=== PATIENT | female | born 1935 | race Two or more races ===

== ENCOUNTER 2022-01-12 06:25 | Emergency (ER) | payer MEDICARE, OTHER ==
[~2022-01-12] VITALS: Ht 165.1 cm; Wt 81.6 kg
[2022-01-12] MEDS ORDERED: HYDROmorphone HCL 2 MG/ML VL IV ONE (08:00)
[2022-01-12] MEDS ORDERED: SODIUM CHLORIDE 0.9% 1,000 ML IV ONE (08:00)
[2022-01-12] MEDS ORDERED: ONDANSETRON HCL 4 MG/2 ML VIAL IV ONE (08:00)
[2022-01-12 08:47] LABS: Albumin 3.2 g/dL (3.4-5.0); BUN/Creatinine Ratio 7.8; Bilirubin, Total 0.7 mg/dL (0.2-1.0); Calcium 8.2 mg/dL (8.5-10.1); Potassium 4.7 mmol/L (3.5-5.1); Total Protein 6.8 g/dL (6.4-8.2)
[2022-01-12 08:48] LABS: Magnesium 2.4 mg/dL (1.6-2.6)
[2022-01-12 09:04] LABS: Basophils # (auto) 0 10 ^3/uL (0-0.2); Basophils % (auto) 0.5 % (0.0-2.0); Eosinophils # (auto) 0.1 10 ^3/uL (0-0.8); Eosinophils % (auto) 0.8 % (0.0-7.0); Hematocrit 34.1 % (36.0-46.0); Hemoglobin 11.4 g/dL (12.2-16.2); Lymphocytes # (auto) 0.9 10 ^3/uL (0.4-5.4); Mean Corpuscular Hemoglobin 28.1 pg (28.0-32.0); Mean Corpuscular Hgb Conc. 33.4 g/dL (32.0-36.0); Mean Corpuscular Volume 84.1 fL (80.0-100.0); Monocytes # (auto) 0.5 10 ^3/uL (0-1.3); Monocytes % (auto) 8.1 % (0.0-12.0); Neutrophils # (auto) 4.7 10 ^3/uL (1.6-8.6); Neutrophils % (auto) 75.6 % (37.0-80.0); Nucleated Red Blood Cells % 0.1 %; Red Blood Cells 4.05 10^6/uL (4.0-5.20); Red Cell Distribution Width 15.4 % (11.8-14.3); White Blood Cell 6.3 10^3/uL (4.4-10.8)
[2022-01-12 09:48] LABS: Urine Bacteria NONE SEEN /hpf (None Seen); Urine Blood Negative /uL (Negative); Urine Specific Gravity 1.003 (1.001-1.035); Urine WBC 1 /hpf (0 - 5)
[2022-01-12 12:00] VITALS: BP 103/50
== END 2022-01-12 14:29 | disposition home or self-care (01) ==
LOC: ER 06:25 → EDBD 06:25 → ER 14:29
DX: G89.29 Other chronic pain (principal); M54.50 Low back pain, unspecified; M47.816 Spondylosis without myelopathy or radiculopathy, lumbar region; M48.56XA Collapsed vertebra, not elsewhere classified, lumbar region, initial encounter for fracture; N18.6 End stage renal disease; Z88.0 Allergy status to penicillin
CPT/HCPCS: 36415; 71045; 72131; 80053; 81001; 83735; 84484; 85025; 93005; 96361; 96374; 96375; 99285; J1170; J2405; J7030

== ENCOUNTER 2022-02-07 18:03 | Inpatient (IN) | payer MEDICARE ==
[~2022-02-07] VITALS: Ht 170.2 cm; Wt 64.0 kg
[2022-02-07] MEDS ORDERED: SODIUM CHLORIDE 0.9% 500 ML IV ONE ×2 (18:30→23:30)
[2022-02-07] MEDS ORDERED: ONDANSETRON HCL 4 MG/2 ML VIAL IV ONE (18:30)
[2022-02-07 19:05] LABS: Eosinophils # (auto) 0.1 10 ^3/uL (0-0.8); Mean Corpuscular Volume 81.8 fL (80.0-100.0); Monocytes # (auto) 0.5 10 ^3/uL (0-1.3); Red Cell Distribution Width 15.3 % (11.8-14.3)
[2022-02-07 19:08] LABS: Basophils # (auto) 0 10 ^3/uL (0-0.2); Basophils % (auto) 0.7 % (0.0-2.0); Eosinophils % (auto) 0.8 % (0.0-7.0); Hematocrit 38.1 % (36.0-46.0); Hemoglobin 12.6 g/dL (12.2-16.2); Lymphocytes # (auto) 1.7 10 ^3/uL (0.4-5.4); Lymphocytes % (auto) 25.2 % (10.0-50.0); Mean Corpuscular Hgb Conc. 32.9 g/dL (32.0-36.0); Monocytes % (auto) 7.5 % (0.0-12.0); Neutrophils # (auto) 4.4 10 ^3/uL (1.6-8.6); Neutrophils % (auto) 65.8 % (37.0-80.0); Nucleated Red Blood Cells % 0.1 %; Red Blood Cells 4.66 10^6/uL (4.0-5.20); White Blood Cell 6.7 10^3/uL (4.4-10.8)
[2022-02-07 19:23] LABS: INR 1.05 (0.9-1.15); Partial Thromboplastin Time 23.1 sec (23.6-33.0)
[2022-02-07 19:24] LABS: Albumin 3.6 g/dL (3.4-5.0); Calcium 9.3 mg/dL (8.5-10.1); Potassium 4.1 mmol/L (3.5-5.1)
[2022-02-07 19:26] LABS: BUN/Creatinine Ratio 9.8
[2022-02-07 19:31] LABS: Bilirubin, Total 0.4 mg/dL (0.2-1.0); Total Protein 7.1 g/dL (6.4-8.2)
[2022-02-07 19:31] LABS: Lactic Acid w/Reflex 2.5 mmol/L (0.4-2.0)
[2022-02-07] MEDS ORDERED: MECLIZINE HCL 25 MG TAB PO ONE (20:30)
[2022-02-07 22:43] LABS: Urine Amorphous Crystal FEW /hpf (None Seen); Urine Bacteria NONE SEEN /hpf (None Seen); Urine Blood Negative /uL (Negative); Urine Specific Gravity 1.012 (1.001-1.035); Urine WBC 1 /hpf (0 - 5)
[2022-02-07] MEDS ORDERED: IOHEXOL 300 MG/ML 100ML BOTTLE IJ ONE (23:21)
[2022-02-08] MEDS ORDERED: ONDANSETRON HCL 4 MG/2 ML VIAL IV PRN (04:30)
[2022-02-08] MEDS ORDERED: DOCUSATE SOD 100 MG CAP PO PRN (04:30)
[2022-02-08] MEDS ORDERED: ACETAMINOPHEN 325 MG TAB PO PRN (04:30)
[2022-02-08] MEDS ORDERED: HYDROcodone-ACET 5/325MG TAB PO PRN (04:30)
[2022-02-08] MEDS ORDERED: NITROGLYCERIN 0.4 MG SL TAB SL PRN (05:15)
[2022-02-08] MEDS ORDERED: MORPHINE SULFATE INJECTION 2 MG/ML SYRG IV PRN (05:15)
[2022-02-08 08:00] VITALS: BP 117/94
[2022-02-08] MEDS ORDERED: ATOR20TA50 PO (09:43)
[2022-02-08] MEDS ORDERED: FLUO-126 PO (09:43)
[2022-02-08] MEDS ORDERED: PRAM0.12 PO (09:43)
[2022-02-08] MEDS ORDERED: MEMA1TAB5 PO (09:43)
[2022-02-08] MEDS ORDERED: MEMANTINE HCL 5 MG TAB PO SCH (10:00)
[2022-02-08] MEDS: MULTIPLE VITAMIN TAB PO SCH (10:46)
[2022-02-08] MEDS: FAMOTIDINE (10MG/ML) 2ML VL IV SCH (10:46)
[2022-02-08] MEDS: ZINC SULFATE 220mg CAP or TAB PO SCH (10:46)
[2022-02-08] MEDS: ASCORBIC ACID 500 MG TAB PO SCH ×2 (10:46→21:54)
[2022-02-08 12:58] VITALS: BP 115/69
[2022-02-08 22:00] VITALS: BP 107/63
[2022-02-09] MEDS ORDERED: LORazepam 2MG/ML-1ML VIAL IV PRN
[2022-02-09] MEDS: MEMANTINE HCL 5 MG TAB PO SCH ×3 (00:04→21:14)
[2022-02-09 02:18] LABS: % Iron Saturation 23.6 % (15-50)
[2022-02-09 02:30] LABS: Ferritin 19.8 ng/mL (10-322)
[2022-02-09 05:00] VITALS: BP 121/74
[2022-02-09 06:08] LABS: Basophils # (auto) 0.1 10 ^3/uL (0-0.2); Basophils % (auto) 0.9 % (0.0-2.0); Eosinophils # (auto) 0.1 10 ^3/uL (0-0.8); Hematocrit 35.5 % (36.0-46.0); Hemoglobin 11.6 g/dL (12.2-16.2); Lymphocytes # (auto) 1.8 10 ^3/uL (0.4-5.4); Lymphocytes % (auto) 30.7 % (10.0-50.0); Mean Corpuscular Hemoglobin 27.1 pg (28.0-32.0); Mean Corpuscular Hgb Conc. 32.8 g/dL (32.0-36.0); Mean Corpuscular Volume 82.6 fL (80.0-100.0); Monocytes # (auto) 0.8 10 ^3/uL (0-1.3); Monocytes % (auto) 12.9 % (0.0-12.0); Neutrophils # (auto) 3.2 10 ^3/uL (1.6-8.6); Neutrophils % (auto) 53.5 % (37.0-80.0); Nucleated Red Blood Cells % 0.1 %; Red Cell Distribution Width 15.9 % (11.8-14.3); White Blood Cell 5.9 10^3/uL (4.4-10.8)
[2022-02-09 06:20] LABS: Albumin 3.4 g/dL (3.4-5.0); BUN/Creatinine Ratio 12.6; Calcium 8.9 mg/dL (8.5-10.1); Potassium 4.2 mmol/L (3.5-5.1)
[2022-02-09 06:23] LABS: Bilirubin, Total 0.5 mg/dL (0.2-1.0); Total Protein 6.6 g/dL (6.4-8.2)
[2022-02-09 08:00] VITALS: BP 103/57
[2022-02-09] MEDS: FAMOTIDINE (10MG/ML) 2ML VL IV SCH (09:49)
[2022-02-09] MEDS: ZINC SULFATE 220mg CAP or TAB PO SCH (09:50)
[2022-02-09] MEDS: ASCORBIC ACID 500 MG TAB PO SCH ×2 (09:50→21:13)
[2022-02-09] MEDS: MULTIPLE VITAMIN TAB PO SCH (09:50)
[2022-02-09 12:00] VITALS: BP 109/72
[2022-02-09 16:00] VITALS: BP 106/58
[2022-02-09] MEDS: PRIMIDONE 50 MG TAB PO SCH (21:15)
[2022-02-09 22:00] VITALS: BP 109/67
[2022-02-10 05:00] VITALS: BP 100/77
[2022-02-10 08:00] VITALS: BP 135/62
[2022-02-10] MEDS ORDERED: ADENOSINE 51 MG in GIVE UN-DILUTED 0 ML IV STA (08:59)
[2022-02-10] MEDS ORDERED: MULT-1058 PO (09:41)
[2022-02-10] MEDS: MEMANTINE HCL 5 MG TAB PO SCH ×2 (10:00→21:26)
[2022-02-10] MEDS: ZINC SULFATE 220mg CAP or TAB PO SCH (10:00)
[2022-02-10] MEDS: ASCORBIC ACID 500 MG TAB PO SCH ×2 (10:00→21:24)
[2022-02-10] MEDS: MULTIPLE VITAMIN TAB PO SCH (10:00)
[2022-02-10] MEDS: FAMOTIDINE (10MG/ML) 2ML VL IV SCH (10:00)
[2022-02-10 11:06] VITALS: BP 139/73
[2022-02-10 12:00] VITALS: BP 147/54
[2022-02-10 16:00] VITALS: BP 140/60
[2022-02-10] MEDS: PRIMIDONE 50 MG TAB PO SCH (21:23)
[2022-02-10 22:00] VITALS: BP 132/68
[2022-02-11 05:00] VITALS: BP 130/63
[2022-02-11 09:16] VITALS: BP 109/76
[2022-02-11] MEDS ORDERED: PRIM50TA27 PO (09:56)
[2022-02-11] MEDS: ZINC SULFATE 220mg CAP or TAB PO SCH (10:00)
[2022-02-11] MEDS: MULTIPLE VITAMIN TAB PO SCH (10:00)
[2022-02-11] MEDS: MEMANTINE HCL 5 MG TAB PO SCH (10:00)
[2022-02-11] MEDS: ASCORBIC ACID 500 MG TAB PO SCH (10:00)
[2022-02-11] MEDS: FAMOTIDINE (10MG/ML) 2ML VL IV SCH (10:00)
[2022-02-11] MEDS: PRIMIDONE 50 MG TAB PO SCH (10:15)
[2022-02-11 16:14] LABS: Folate (Folic Acid) > 24.0 ng/mL (5.38-24)
== END 2022-02-11 12:00 | disposition home health service (06) | DRG 71 ==
LOC: EDBD 18:03 → ER 18:03 → OVERFLOW 02-08 05:09 → CENTRAL 02-08 08:12
PROVIDERS: ADMIT Nurse Practitioner Family; ATTEND Family Medicine
DX: G93.41 Metabolic encephalopathy (principal); E87.2 Acidosis; R42 Dizziness and giddiness; G40.209 Localization-related (focal) (partial) symptomatic epilepsy and epileptic syndromes with complex partial seizures, not intractable, without status epilepticus; K80.20 Calculus of gallbladder without cholecystitis without obstruction; K57.30 Diverticulosis of large intestine without perforation or abscess without bleeding; I45.10 Unspecified right bundle-branch block; Z20.822 Contact with and (suspected) exposure to COVID-19; F32.A Depression, unspecified; R94.31 Abnormal electrocardiogram [ECG] [EKG]; F03.90 Unspecified dementia, unspecified severity, without behavioral disturbance, psychotic disturbance, mood disturbance, and anxiety; G25.0 Essential tremor; F60.0 Paranoid personality disorder; Z79.899 Other long term (current) drug therapy; Z82.0 Family history of epilepsy and other diseases of the nervous system; I25.2 Old myocardial infarction; Z90.710 Acquired absence of both cervix and uterus; Z88.0 Allergy status to penicillin
CPT/HCPCS: 36415; 70450; 70551; 71045; 74177; 78452; 80053; 81001; 82607; 82728; 82746; 83540; 83550; 83605; 83690; 84443; 84484; 85025; 85379; 85610; 85730; 93005; 93017; 93306; 93886; 93970; 95819; 96361; 96374; 97110; 97116; 97163; G0378; J0153; J2405; J3490

== ENCOUNTER 2024-06-16 07:35 | Inpatient (IN) | payer MEDICARE ==
[~2024-06-16] VITALS: Ht 165.1 cm; Wt 60.0 kg
[~2024-06-16 07:35] MED LIST: ATOR20TA50 PO; FLUO-126 PO; MEMA1TAB5 PO; MULT-1058 PO; PRAM0.12 PO; PRIM50TA27 PO
[2024-06-16 08:10] VITALS: PULSE 89; RESP 18; O2SAT 94
[2024-06-16 08:37] LABS: Basophils # (auto) 0 10 ^3/uL (0-0.2); Basophils % (auto) 0.7 % (0.0-2.0); Eosinophils # (auto) 0.1 10 ^3/uL (0-0.8); Eosinophils % (auto) 1.6 % (0.0-7.0); Hematocrit 39.3 % (36.0-46.0); Hemoglobin 13.1 g/dL (12.2-16.2); Lymphocytes # (auto) 0.9 10 ^3/uL (0.4-5.4); Lymphocytes % (auto) 18.3 % (10.0-50.0); Mean Corpuscular Hemoglobin 29.7 pg (28.0-32.0); Mean Corpuscular Hgb Conc. 33.3 g/dL (32.0-36.0); Mean Corpuscular Volume 89.1 fL (80.0-100.0); Monocytes # (auto) 0.6 10 ^3/uL (0-1.3); Monocytes % (auto) 11.7 % (0.0-12.0); Neutrophils # (auto) 3.3 10 ^3/uL (1.6-8.6); Neutrophils % (auto) 67.7 % (37.0-80.0); Red Blood Cells 4.41 10^6/uL (4.0-5.20); Red Cell Distribution Width 14.2 % (11.8-14.3); White Blood Cell 4.9 10^3/uL (4.4-10.8)
[2024-06-16 08:49] LABS: Chloride 102 mmol/L (98-107); Potassium 3.7 mmol/L (3.5-5.1); Sodium 137 mmol/L (136-145)
[2024-06-16 08:50] LABS: Anion Gap 9 (5-15); Calcium 9.5 mg/dL (8.7-10.4); Carbon Dioxide 26 mmol/L (20-30)
[2024-06-16 08:55] LABS: Glucose 115 mg/dL (74-106)
[2024-06-16 08:59] LABS: Blood Urea Nitrogen < 5 mg/dL (9-23)
[2024-06-16] MEDS ORDERED: ONDANSETRON HCL 4 MG/2 ML VIAL IV PRN (10:45)
[2024-06-16] MEDS ORDERED: POLYETHYLENE GLYCOL 17 GM PWDR PO PRN (10:45)
[2024-06-16] MEDS ORDERED: MORPHINE SULFATE INJ 2 MG/ml SYRG IV PRN (10:45)
[2024-06-16] MEDS ORDERED: DOCUSATE SOD 100 MG CAP PO PRN (10:45)
[2024-06-16] MEDS ORDERED: NITROGLYCERIN 0.4 MG SL TAB SL PRN (10:45)
[2024-06-16] MEDS: POLYETHYLENE GLYCOL 17 GM PWDR PO ONE (11:41)
[2024-06-16] MEDS: SODIUM CHLORIDE 0.9% 1,000 ML IV SCH (11:42)
[2024-06-16 11:49] LABS: Urine Bacteria None Seen /hpf (None Seen)
[2024-06-16 12:03] LABS: Urine Blood Negative /uL (Negative); Urine Clarity Clear (Clear); Urine Color Colorless (Yellow); Urine Protein, UAD Negative (Negative); Urine Specific Gravity 1.003 (1.001-1.035); Urine Urobilinogen Normal (Negative); Urine WBC <1 /hpf (0 - 5)
[2024-06-16 17:36] VITALS: PULSE 75; O2SAT 97
[2024-06-16 19:25] VITALS: BP 124/49; PULSE 85; RESP 17; TEMP 98; O2SAT 94
[2024-06-16 20:00] VITALS: PULSE 79; RESP 18; O2SAT 95
[2024-06-16] MEDS: PRIMIDONE 50 MG TAB PO SCH (20:27)
[2024-06-16] MEDS: MEMANTINE HCL 5 MG TAB PO SCH (20:27)
[2024-06-16] MEDS: traZODone HCL 50 MG TAB PO SCH (20:30)
[2024-06-16 22:00] VITALS: BP 120/45; PULSE 79; RESP 18; TEMP 97.7; O2SAT 98
[2024-06-16] MEDS ORDERED: PATIENTS OWN MEDICATION (Memantine Hydrochloride (Memantine HCl) 10 MG) PO SCH (22:00)
[2024-06-17] VITALS (7 sets, daily range): BP systolic 102–141; BP diastolic 60–94; PULSE 72–100; RESP 16–18; TEMP 97.4–98.5; O2SAT 94–96
[2024-06-17] MEDS: CIPROFLOXACIN 400MG/200ML 200 ML IV ONE (00:57)
[2024-06-17] MEDS: metroNIDAZOLE 500MG/100ML 100 ML IV ONE (00:58)
[2024-06-17 05:52] LABS: Alkaline Phosphatase 71 U/L (46-116); Anion Gap 6 (5-15); Aspartate Aminotransferase 10 U/L (13-40); BUN/Creatinine Ratio 7.7 (10.0-20.0); Blood Urea Nitrogen 6 mg/dL (9-23); Calcium 9.1 mg/dL (8.7-10.4); Carbon Dioxide 28 mmol/L (20-30); Chloride 104 mmol/L (98-107); Glucose 101 mg/dL (74-106); Potassium 4.3 mmol/L (3.5-5.1); Sodium 138 mmol/L (136-145)
[2024-06-17 05:53] LABS: Albumin 3.9 g/dL (3.2-4.8); Bilirubin, Total 0.7 mg/dL (0.2-1.0)
[2024-06-17 05:54] LABS: Total Protein 5.9 g/dL (5.7-8.2)
[2024-06-17 05:57] LABS: Basophils # (auto) 0 10 ^3/uL (0-0.2); Basophils % (auto) 0.6 % (0.0-2.0); Eosinophils # (auto) 0.2 10 ^3/uL (0-0.8); Eosinophils % (auto) 2.9 % (0.0-7.0); Hematocrit 37.2 % (36.0-46.0); Hemoglobin 12.8 g/dL (12.2-16.2); Lymphocytes # (auto) 1.3 10 ^3/uL (0.4-5.4); Lymphocytes % (auto) 23.1 % (10.0-50.0); Mean Corpuscular Hemoglobin 30.9 pg (28.0-32.0); Mean Corpuscular Hgb Conc. 34.4 g/dL (32.0-36.0); Mean Corpuscular Volume 89.9 fL (80.0-100.0); Monocytes # (auto) 0.7 10 ^3/uL (0-1.3); Neutrophils # (auto) 3.3 10 ^3/uL (1.6-8.6); Neutrophils % (auto) 60.4 % (37.0-80.0); Nucleated Red Blood Cells % 0.2 %; Red Blood Cells 4.14 10^6/uL (4.0-5.20); White Blood Cell 5.5 10^3/uL (4.4-10.8)
[2024-06-17] MEDS: metroNIDAZOLE 500MG/100ML 100 ML IV SCH (06:00)
[2024-06-17 06:11] LABS: Alanine Aminotransferase 10 U/L (7-40)
[2024-06-17] MEDS ORDERED: PRAMIPEXOLE DIHYDROCHLORIDE 0.125 MG PO SCH (10:00)
[2024-06-17] MEDS: PRAMIPEXOLE DIHYDROCHLORIDE MO 0.25 MG TAB PO SCH (10:46)
[2024-06-17] MEDS: MULTIPLE VITAMINS W/ MINERALS TAB PO SCH (10:46)
[2024-06-17] MEDS: ATORVASTATIN 20 MG TAB PO SCH (10:46)
[2024-06-17] MEDS: CIPROFLOXACIN 400MG/200ML 200 ML IV SCH (11:21)
[2024-06-18 06:23] LABS: Basophils # (auto) 0 10 ^3/uL (0-0.2); Basophils % (auto) 0.6 % (0.0-2.0); Eosinophils # (auto) 0.1 10 ^3/uL (0-0.8); Eosinophils % (auto) 2.6 % (0.0-7.0); Hematocrit 37.8 % (36.0-46.0); Lymphocytes # (auto) 1.4 10 ^3/uL (0.4-5.4); Lymphocytes % (auto) 25.9 % (10.0-50.0); Mean Corpuscular Hgb Conc. 34.3 g/dL (32.0-36.0); Mean Corpuscular Volume 90.3 fL (80.0-100.0); Monocytes # (auto) 0.6 10 ^3/uL (0-1.3); Monocytes % (auto) 11.4 % (0.0-12.0); Neutrophils # (auto) 3.2 10 ^3/uL (1.6-8.6); Neutrophils % (auto) 59.5 % (37.0-80.0); Nucleated Red Blood Cells % 0.2 %; Red Blood Cells 4.18 10^6/uL (4.0-5.20); Red Cell Distribution Width 14.2 % (11.8-14.3); White Blood Cell 5.3 10^3/uL (4.4-10.8)
[2024-06-18 06:36] LABS: Anion Gap 8 (5-15); Calcium 9.1 mg/dL (8.7-10.4); Carbon Dioxide 24 mmol/L (20-30); Chloride 105 mmol/L (98-107); Potassium 3.9 mmol/L (3.5-5.1); Sodium 137 mmol/L (136-145)
[2024-06-18 06:42] LABS: Glucose 96 mg/dL (74-106)
[2024-06-18 06:45] LABS: Blood Urea Nitrogen < 5 mg/dL (9-23)
[2024-06-18 07:11] LABS: BUN/Creatinine Ratio 6.4 (10.0-20.0)
[2024-06-18 07:57] VITALS: RESP 18; O2SAT 95
[2024-06-18 09:00] VITALS: BP 114/61; PULSE 100; RESP 18; TEMP 98.1; O2SAT 96
[2024-06-18] MEDS: POLYETHYLENE GLYCOL 17 GM PWDR PO SCH (10:00)
[2024-06-18] MEDS: FLUoxetine HCL 10 MG CAP PO SCH (10:06)
[2024-06-18] MEDS ORDERED: DOCU-265 PO (12:09)
[2024-06-18 13:00] VITALS: BP 117/69; PULSE 101; RESP 20; TEMP 98; O2SAT 95
[2024-06-18 14:48] VITALS: TEMP 36.6
== END 2024-06-18 16:00 | disposition home or self-care (01) | DRG 388 ==
LOC: ER 07:35 → OVERFLOW 10:42 → WEST WING 17:27
PROVIDERS: ADMIT Internal Medicine Pulmonary Disease; ATTEND Internal Medicine Pulmonary Disease
DX: K56.41 Fecal impaction (principal); G93.41 Metabolic encephalopathy; N18.6 End stage renal disease; F03.90 Unspecified dementia, unspecified severity, without behavioral disturbance, psychotic disturbance, mood disturbance, and anxiety; K57.30 Diverticulosis of large intestine without perforation or abscess without bleeding; K80.20 Calculus of gallbladder without cholecystitis without obstruction; G47.00 Insomnia, unspecified; N20.0 Calculus of kidney; Z88.0 Allergy status to penicillin
CPT/HCPCS: 36415; 74176; 76775; 80048; 80053; 81001; 82962; 85025; 93005; G0378; J3490

== ENCOUNTER 2025-04-23 17:42 | Inpatient (IN) | payer MEDICARE ==
[~2025-04-23] VITALS: Ht 160 cm; Wt 64.9 kg
[~2025-04-23 17:42] MED LIST changes: +DOCU-265 PO
--- NOTE | 2025-04-23 18:17 | ED.PDOC ---
HPI (NEURO) HPI Comments 89 y.o female with PMHx of dementia, presents to the ED via EMS for a chief complaint of nausea, vomiting and abdominal discomfort s/p what her facility staff stated was a tonic clonic seizure. EMS reports patient resides at a skilled facility and staff witnessed a 20 second tonic clonic seizure. Patient is a poor historian due to medical history and limited history provided by facility. At this time no family present. Patient has no history of seizures. Vital signs were stable on arrival. Chief Complaint: Nausea/Vomiting Time Seen by MD: 18:10 Primary Care Provider: JAIR Reviewed Notes: Nurses Notes, Quarry Equipment Operator Notes, Medications, Allergies Information Source: Emergency Med Personnel Mode of Arrival: EMS Severity: Moderate Timing: Hours Duration: Since onset Prehospital treatment: 12 Lead EKG Seizure Quality: Tonic-clonic Seizure Location: Generalized Onset: At rest Circumstances: Spontaneous Symptoms: None Before: Normal During: LOC History of: None Modifying factors: Nothing Associated Signs and Symptoms: Nausea, Vomiting Past Medical History PAST MEDICAL HISTORY: Dementia, ESRD Surgical History: Denies all surgeries 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 all 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 Family History Family History: Reviewed,noncontributory to illness Social History Smoker: Non-Smoker Alcohol: Denies ETOH Use Drugs: Denies Drug Use Lives In: Home Constitutional: denies: chills, diaphoresis, fatigue, fever, malaise, sweats, weakness, others EENTM: denies: blurred vision, double vision, ear bleeding, ear discharge, ear drainage, ear pain, ear ringing, eye pain, eye redness, hearing loss, mouth pain, mouth swelling, nasal discharge, nose bleeding, nose congestion, nose pain, photophobia, tearing, throat pain, throat swelling, voice changes, others Respiratory: denies: cough, hemoptysis, orthopnea, SOB at rest, shortness of breath, SOB with excertion, stridor, wheezing, others Cardiovascular: denies: chest pain, dizzy spells, diaphoresis, Dyspnea on exertion, edema, irregular heart beat, left arm pain, lightheadedness, palpitations, PND, syncope, others Gastrointestinal: reports: nausea, vomiting; denies: abdomen distended, abdominal pain, blood streaked bowels, constipated, diarrhea, dysphagia, difficulty swallowing, hematemesis, melena, poor appetite, poor fluid intake, rectal bleeding, rectal pain, others Genitourinary: denies: abnormal vagina bleeding, burning, dyspareunia, dysuria, flank pain, frequency, hematuria, incontinence, pain, , vagina di scharge, urgency, others Neurological: reports: seizure; denies: dizziness, fainting, headache, left sided numbness, left sided weakness, numbness, paresthesia, pre-existing deficit, right sided numbness, right sided weakness, speech problems, tingling, tremors, weakness, others Musculoskeletal: denies: back pain, gout, joint pain, joint swelling, muscle pain, muscle stiffness, neck pain, others Integumetry: denies: bruises, change in color, change in hair/nails, dryness, laceration, lesions, lumps, rash, wounds, others Allergic/Immunocompromised: denies: Difficulty Healing, Frequent Infections, Hives, Itching, others Hematologic/Lymphatic: denies: anemia, blood clots, easy bleeding, easy bruising, swollen glands, others Endocrine: denies: excessive hunger, excessive sweating, excessive thirst, excessive urination, flushing, intolerance to cold, intolerance to heat, unexplained weight gain, unexplained weight loss, others Psychiatric: denies: anxiety, bipolar disorder, depression, hopeless, panic disorder, schizophrenia, sleepless, suicidal, others Unable to Obtain due to: Dementia Physical Exam Exam Comments Patient presents with a advanced dementia. General Appearance: Mild Distress (Moderate distress due to minimal nausea concerns.), Normal HEENT: Normal ENT Inspection, Pharynx Normal, TMs Normal Neck: Full Range of Motion, Non-Tender, Normal, Normal Inspection Respiratory: Chest Non-Tender, Lungs Clear, No Accessory Muscle Use, No Respiratory Distress, Normal Breath Sounds Cardiovascular: No Edema, No JVD, No Murmur, No Gallop, Normal Peripheral Puls es, Regular Rate/Rhythm Breast Exam: Deferred Gastrointestinal: Other (Unremarkable abdominal evaluation. No pulsatile masses. Abdomen was reasonably soft.) Genitalia: Deferred Pelvic: Deferred Rectal: Deferred Extremities: Normal inspection, Non-tender Neurologic: Other (Patient displays signs of advanced dementia.) Cerebellar Function: NOT DONE Reflexes: NOT DONE Skin: Dry, Normal Color, Warm Lymphatic: No Adenopathy Was a procedure done? Was a procedure done?: No Differential Diagnosis (SZ) Seizure: Psychogenic Seizure, CVA/TIA, Syncope, Encephalopathy, Epilepsy-Break Through, Epilepsy-Status, Other (Sepsis, electrolyte abnormality) X-Ray, Labs, Meds, VS Vital Signs Date Time Temp Pulse Resp B/P (MAP) Pulse Ox O2 Delivery O2 Flow Rate FiO2 04/23/25 19:45 100 Room Air* 0 21 04/23/25 19:45 98.5 75 15 102/47 (65) 100 98.5 04/23/25 18:17 74 04/23/25 18:01 Room Air* 0 21 04/23/25 18:00 98.0 77 15 111/43 (65) 95 98.0 04/23/25 17:44 97.7 77 16 111/57 (75) 90 97.7 Lab Test 04/23/25 19:05 04/23/25 18:11 04/23/25 18:00 Range/Units Troponin I High Sensitivity 3 L 3 L </=34 ng/L White Blood Count 10.7 4.4-10.8 10^3/uL Red Blood Count 4.56 4.0-5.20 10^6/uL Hemoglobin 13.7 12.2-16.2 g/dL Hematocrit 41.0 36.0-46.0 % Mean Corpuscular Volume 89.9 80.0-100.0 fL Mean Corpuscular Hemoglobin 30.1 28.0-32.0 pg Mean Corpuscular Hemoglobin Concent 33.5 32.0-36.0 g/dL Red Cell Distribution Width 14.0 11.8-14.3 % Platelet Count 180 140-450 10^3/uL Mean Platelet Volume 8.0 6.9-10.8 fL Neutrophils (%) (Auto) 87.1 H 37.0-80.0 % Lymphocytes (%) (Auto) 6.2 L 10.0-50.0 % Monocytes (%) (Auto) 6.2 0.0-12.0 % Eosinophils (%) (Auto) 0.2 0.0-7.0 % Basophils (%) (Auto) 0.3 0.0-2.0 % Neutrophils # (Auto) 9.3 H 1.6-8.6 10 ^3/uL Lymphocytes # (Auto) 0.7 0.4-5.4 10 ^3/uL Monocytes # (Auto) 0.7 0-1.3 10 ^3/uL Eosinophils # (Auto) 0 0-0.8 10 ^3/uL Basophils # (Auto) 0 0-0.2 10 ^3/uL Nucleated Red Blood Cells 0.0 % Sodium Level 141 136-145 mmol/L Potassium Level 4.1 3.5-5.1 mmol/L Chloride Level 105 98-107 mmol/L Carbon Dioxide Level 26 20-31 mmol/L Anion Gap 10 5-15 Blood Urea Nitrogen 12 9-23 mg/dL Creatinine 1.14 H 0.550-1.02 mg/dL Glomerular Filtration Rate Calc 46 >90 mL/min BUN/Creatinine Ratio 10.5 10.0-20.0 Serum Glucose 149 H 74-106 mg/dL Calcium Level 9.3 8.7-10.4 mg/dL Total Bilirubin 0.6 0.2-1.0 mg/dL Aspartate Amino Transferase (AST) 24 13-40 U/L Alanine Aminotransferase (ALT) 16 7-40 U/L Alkaline Phosphatase 83 46-116 U/L Total Protein 6.6 5.7-8.2 g/dL Albumin 4.4 3.2-4.8 g/dL Influenza Type A Antigen Negative Negative Influenza Type B Antigen Negative Negative SARS-CoV-2 Antigen (Rapid) Negative NEGATIVE X-Ray, Labs, Meds, VS Comment All studies performed the ED were evaluated by me personally. Urinalysis was pending at time of this note. Laboratories were unremarkable for any systemic concerns. EKG revealed a sinus rhythm with a rate of 74. Multiple ventricular premature complexes noted with right bundle-branch block and an old inferior infarct. NH interval of 204 and QT interval of 421. Due to the supposed witnessed seizure event without a history of seizures, patient will be admitted for neurologic evaluation. Time of 1ST Reevaluation: 21:35 Reevaluation 1ST: Unchanged Consultation: PCP, Neurology Patient Education/Counseling: Diagnosis, Treatment, Other (Patient has a history of dementia) Family Education/Counseling: Diagnosis, Treatment, No Family Present Departure 1 Departure Time of Disposition: 21:37 Impression: Primary Impression: Encephalopathy Additional Impression: Dementia Disposition: ADMITTED INPATIENT Condition: Fair Discharged With: Self Critical Care Note Critical Care Time?: No Stability Stability form required: No Heart Score Heart Score: Heart Score Response (Comments) Value History Slightly Suspicious 0 EKG Repolarization Disturb 1 Age >65 2 Risk Factors 1 or 2 risk factors 1 Troponin Normal limit 0 Total 4 I personally scribed for LAURI MCGEE PAC ([email or web address]) on 04/23/25 at 18:17. Electronically submitted by Luz Tee ([facility]). LAURI MCGEE PAC Apr 23, 2025 18:17
[2025-04-23 18:23] LABS: Basophils # (auto) 0 10 ^3/uL (0-0.2); Basophils % (auto) 0.3 % (0.0-2.0); Eosinophils # (auto) 0 10 ^3/uL (0-0.8); Eosinophils % (auto) 0.2 % (0.0-7.0); Hemoglobin 13.7 g/dL (12.2-16.2); Lymphocytes # (auto) 0.7 10 ^3/uL (0.4-5.4); Lymphocytes % (auto) 6.2 % (10.0-50.0); Mean Corpuscular Hemoglobin 30.1 pg (28.0-32.0); Mean Corpuscular Hgb Conc. 33.5 g/dL (32.0-36.0); Mean Corpuscular Volume 89.9 fL (80.0-100.0); Monocytes # (auto) 0.7 10 ^3/uL (0-1.3); Monocytes % (auto) 6.2 % (0.0-12.0); Neutrophils # (auto) 9.3 10 ^3/uL (1.6-8.6); Neutrophils % (auto) 87.1 % (37.0-80.0); Platelet Count (auto) 180 10^3/uL (140-450); Red Blood Cells 4.56 10^6/uL (4.0-5.20); White Blood Cell 10.7 10^3/uL (4.4-10.8)
[2025-04-23 18:36] LABS: Alanine Aminotransferase 16 U/L (7-40); Albumin 4.4 g/dL (3.2-4.8); Alkaline Phosphatase 83 U/L (46-116); Anion Gap 10 (5-15); Aspartate Aminotransferase 24 U/L (13-40); BUN/Creatinine Ratio 10.5 (10.0-20.0); Blood Urea Nitrogen 12 mg/dL (9-23); Calcium 9.3 mg/dL (8.7-10.4); Carbon Dioxide 26 mmol/L (20-31); Chloride 105 mmol/L (98-107); Potassium 4.1 mmol/L (3.5-5.1); Sodium 141 mmol/L (136-145); Total Protein 6.6 g/dL (5.7-8.2)
[2025-04-23 18:37] LABS: Bilirubin, Total 0.6 mg/dL (0.2-1.0)
[2025-04-23 18:38] LABS: Glucose 149 mg/dL (74-106)
[2025-04-23 18:57] LABS: COVID19 ANTIGEN SOFIA FIA NEGATIVE (NEGATIVE)
[2025-04-23 18:58] LABS: Rapid Influenza A Negative (Negative); Rapid Influenza B Negative (Negative)
[2025-04-23 19:45] VITALS: O2SAT 100
[2025-04-23 21:46] LABS: Urine Bacteria None Seen /hpf (None Seen)
[2025-04-23 21:55] LABS: Urine Blood Negative /uL (Negative); Urine Clarity Clear (Clear); Urine Color Yellow (Yellow); Urine Mucus FEW (None Seen); Urine Protein, UAD Negative (Negative); Urine Specific Gravity 1.018 (1.001-1.035); Urine Squamous Epithelial Cell FEW /hpf (<5); Urine Urobilinogen Normal (Negative); Urine WBC 1 /HPF (0-5); Urine pH 5.5 (5.0-9.0)
--- NOTE | 2025-04-23 22:11 | DVH ---
EXAM: CT HEAD WITHOUT CONTRAST INDICATION: Seizure event TECHNIQUE: CT of the head without intravenous contrast. Radiation Dose : 1. Head: CT Dose: CTDI volume is 48.84 mGy. Dose-length product is 783.53 mGy*cm The dose indicators for CT are the volume Computed Tomography (CT) Dose Index (CTDIvol) and the Dose Length Product (DLP), and are measured in units of mGy and mGy-cm, respectively. These indicators are not patient dose, but values generated from the CT scanner acquisition factors. The report includes radiation exposure data for exposures received during this examination. COMPARISON: HEAD WITHOUT CONTRAST on DOS: 02/07/22 FINDINGS: There is no evidence of acute intracranial hemorrhage, extra-axial collection, mass effect, midline s hift, herniation or hydrocephalus. The ventricles, sulci and cisterns are age appropriate. The zurita-white differentiation is intact. Patchy periventricular and subcortical white matter hypoattenuation is nonspecific but may be related to small vessel ischemic disease. The visualized paranasal sinuses and mastoid air cells are clear. The surrounding soft tissues and osseous structures are unremarkable. IMPRESSION: No acute intracranial abnormality. Moderate to severe chronic small vessel ischemic disease. Age-rel ated atrophy.
[2025-04-23] MEDS: levETIRAcetam 1000 mg/100ml 100 ML IV ONE (22:15)
[2025-04-24] VITALS (7 sets, daily range): BP systolic 103–146; BP diastolic 46–68; PULSE 58–76; RESP 16–18; TEMP 97.5–98.7; O2SAT 96–100
[2025-04-24] MEDS: PRAMIPEXOLE DIHYDROCHLORIDE MO 0.25 MG TAB PO ONE (00:15)
[2025-04-24] MEDS ORDERED: NITROGLYCERIN 0.4 MG SL TAB SL PRN (00:15)
[2025-04-24] MEDS ORDERED: MORPHINE SULFATE 4 MG/ML SYR/VIAL IV PRN (00:30)
[2025-04-24] MEDS: SODIUM CHLORIDE 0.9% 1,000 ML IV ONE (00:30)
[2025-04-24] MEDS ORDERED: ONDANSETRON HCL 4 MG/2 ML VIAL IV PRN (00:45)
--- NOTE | 2025-04-24 00:52 | DVHHPRES ---
History of Present Illness Resident Creating Document: DERIK FINNALIRIO RESIDENT History of Present Illness Patient is a 89 year old female with a past medical history of dementia, dyslipidemia, insomnia was brought to the ED via EMS for chief complaint of nausea and abdominal discomfort s/p what her facility staff stated was a tonic clonic seizure. Patient lives at [facility] and apparently stopped witnessed about 20 seconds of seizure-like activity while she was eating and she started to have tremors. Patient is a poor historian due to medical history and limited history provided by facility. At this time no family present. Patient has no history of seizures. Past medical history: dementia, dyslipidemia, insomnia Past surgical history: Tonsillectomy, hysterectomy Social history: Patient reports more than 40 pack year smoking history but currently denies any smoking, alcohol, drug use Home medications: Atorvastatin 20 mg, pramipexole 0.125 mg, memantine 10 mg b.i.d., trazodone 50 mg HS Review of Systems Review of Systems Seen and examined at the bedside Patient reported of some dysuria when she arrived but now reports feeling better, minimal discomfort in the lower abdomen on deep palpation Reports that she has regular bowel movements but small amount Denied any incontinence No chest pain, shortness of breath, headache Allergies: Coded Allergies: Iodine (Verified Allergy, Unknown, 04/23/25) Penicillins (Verified Allergy, Unknown, 01/12/22) Shellfish Allergy (Verified Allergy, Unknown, 04/23/25) Exam Vital Signs Vital Signs Date Time Temp Pulse Resp B/P (MAP) Pulse Ox O2 Delivery O2 Flow Rate FiO2 04/23/25 23:28 66 18 94/38 (56) 93 04/23/25 19:45 Room Air* 0 21 04/23/25 19:45 98.5 98.5 Exam Gen - no pallor, no icterus, no cyanosis, no clubbing, no LAD, no edema . Skin - Patients skin is warm and dry. HEENT - normocephalic, atraumatic, moist mucous membranes. Neck - full ROM, no LAD, no JVD Pulmonary - B/L equal breath sounds, no crackles, no wheezing, no stridor. cardiovascular - regular S1,S2 heard, no added sounds, no murmurs heard. peripheral pulses normal radial 2+, pedal 2+. capillary refill normal <2 secs. GI - soft, nontender abdomen. no hepatospleenomegaly. Bowel sounds normoactive Neurological - Patient is A/O X [address] and person but disoriented to time and does not clearly know why she is here . Bilateral upper extremity strength 5/5, bilateral lower extremity strength 5/5, no facial droop, normal speech, no tremor, no sensory deficiets. Labs/Xrays Labs Test 04/23/25 21:20 04/23/25 19:05 04/23/25 18:11 04/23/25 18:00 Range/Units Urine Color Yellow Yellow Urine Clarity Clear Clear Urine pH 5.5 5.0-9.0 Urine Specific [place] 1.018 1.001-1.035 Urine Protein Negative Negative Urine Ketones Negative Negative Urine Blood Negative Negative /uL Urine Nitrite Negative Negative Urine Bilirubin Negative Negative Urine Urobilinogen Normal Negative mg/dL Urine Leukocyte Esterase Negative Negative /uL Urine RBC 2 0 - 4 /hpf Urine Microscopic WBC 1 0-5 /HPF Urine Squamous Epithelial Cells Few <5 /hpf Urine Bacteria None seen None Seen /hpf Urine Mucus Few None Seen Urine Glucose Normal Normal mg/dL Troponin I High Sensitivity 3 L </=34 ng/L White Blood Count 10.7 4.4-10.8 10^3/uL Red Blood Count 4.56 4.0-5.20 10^6/uL Hemoglobin 13.7 12.2-16.2 g/dL Hematocrit 41.0 36.0-46.0 % Mean Corpuscular Volume 89.9 80.0-100.0 fL Mean Corpuscular Hemoglobin 30.1 28.0-32.0 pg Mean Corpuscular Hemoglobin Concent 33.5 32.0-36.0 g/dL Red Cell Distribution Width 14.0 11.8-14.3 % Platelet Count 180 140-450 10^3/uL Mean Platelet Volume 8.0 6.9-10.8 fL Neutrophils (%) (Auto) 87.1 H 37.0-80.0 % Lymphocytes (%) (Auto) 6.2 L 10.0-50.0 % Monocytes (%) (Auto) 6.2 0.0-12.0 % Eosinophils (%) (Auto) 0.2 0.0-7.0 % Basophils (%) (Auto) 0.3 0.0-2.0 % Neutrophils # (Auto) 9.3 H 1.6-8.6 10 ^3/uL Lymphocytes # (Auto) 0.7 0.4-5.4 10 ^3/uL Monocytes # (Auto) 0.7 0-1.3 10 ^3/uL Eosinophils # (Auto) 0 0-0.8 10 ^3/uL Basophils # (Auto) 0 0-0.2 10 ^3/uL Nucleated Red Blood Cells 0.0 % Sodium Level 141 136-145 mmol/L Potassium Level 4.1 3.5-5.1 mmol/L Chloride Level 105 98-107 mmol/L Carbon Dioxide Level 26 20-31 mmol/L Anion Gap 10 5-15 Blood Urea Nitrogen 12 9-23 mg/dL Creatinine 1.14 H 0.550-1.02 mg/dL Glomerular Filtration Rate Calc 46 >90 mL/min BUN/Creatinine Ratio 10.5 10.0-20.0 Serum Glucose 149 H 74-106 mg/dL Calcium Level 9.3 8.7-10.4 mg/dL Total Bilirubin 0.6 0.2-1.0 mg/dL Aspartate Amino Transferase (AST) 24 13-40 U/L Alanine Aminotransferase (ALT) 16 7-40 U/L Alkaline Phosphatase 83 46-116 U/L Total Protein 6.6 5.7-8.2 g/dL Albumin 4.4 3.2-4.8 g/dL Influenza Type A Antigen Negative Negative Influenza Type B Antigen Negative Negative SARS-CoV-2 Antigen (Rapid) Negative NEGATIVE Assessment/Plan Assessment/Plan Acute metabolic encephalopathy likely due to dehydration History of dementia History of insomnia ? Parkinsonism - CT head without contrast showed no acute intracranial abnormality, chronic microvascular changes - IV fluids - continue memantine 10 mg b.i.d., trazodone 50 mg HS - at home patient is taking pramipexole 0.125 mg as per the records Lower abdominal pain ? Ureter colic MEME on CKD likely due to be VMN - ultrasound abdomen pending - IV fluids - ondansetron p.r.n. PUD prophylaxis: Protonix DVT prophylaxis: Enoxaparin Goals of care discussed with the patient and the RN for over 23 minutes. Full code Time spent: 37 minutes Plan discussed with Dr. Payne Plan discussed with: Patient, Other (RN) My Orders Orders - JONATAN FINN RESIDENT Procedure Category Date Status Time Admit ADMIT 04/24/25 Verified 00:07 Nitroglycerin PHA 04/24/25 Verified Sublingual (Ntrostat 00:15 Morphine Sulfate PHA 04/24/25 Verified Injection 00:15 Oxygen By Nasal RT 04/24/25 Verified Cannula 00:07 Stat Ekg For Chest [facility] 04/24/25 Verified Pain 00:07 Notify Md Of Changes [facility] 04/24/25 Verified From Base 00:07 American Sign Language Teacher For [facility] 04/24/25 Verified 24 Hours 00:07 Emergency Dysrhythmia [facility] 04/24/25 Verified Protocol 00:07 Rhythm Strips Once [facility] 04/24/25 Verified Every Shift 00:07 Complete Blood Count LAB 04/24/25 Verified 04:00 Basic Metabolic Panel LAB 04/24/25 Verified 04:00 Atorvastatin (Lipitor) PHA 04/24/25 Verified 22:00 Memantine Tablet PHA 04/24/25 Verified (Namenda Tablet) 10:00 Pramipexole Tablet PHA 04/24/25 Verified (Mirapex Tablet) 22:00 Trazodone Hcl PHA 04/24/25 Verified (Desyrel) 22:00 Pramipexole Tablet PHA 04/24/25 Verified (Mirapex Tablet) 00:15 NS PHA 04/24/25 Verified 00:15 Date of Service: Apr 24, 2025 Billing Provider: KRISTINA PAYNE MD Common Visit Codes: [id number] INP/OBS CARE (HIGH) Secondary Visit Codes: 16142-WEORANNU CARE PLAN 30 MINUTES JONATAN FINN RESIDENT Apr 24, 2025 00:52
[2025-04-24] MEDS: traZODone HCL 50 MG TAB PO ONE (01:00)
--- NOTE | 2025-04-24 02:08 | DVH ---
INDICATION: generalised abd. pain TECHNIQUE: Multiple real-time sonographic images were obtained of the right upper quadrant. COMPARISON: ABPLIV on DOS: 02/07/22 FINDINGS: The liver demonstrates normal homogeneous echotexture without focal mass lesions. The liver measures 14.8 cm. Normal hepatopetal portal flow identified. No evidence of pleural effusion or abd ominal ascites. There is no intrahepatic or extrahepatic ductal dilatation. The common duct measures 0.5 cm. Mobile sludge identified within the gallbladder. The gallbladder wall measures 0.2 cm and is within n ormal limits. Negative sonographic daley's sign. The right kidney mildly atrophic, measuring 8.6 cm. The right kidney is normal in contour and shape. The echogenicity is normal. There is no hydronephrosis. The left kidney measures 10.4 cm. The left kidney is normal in contour, size, and shape. The echoge nicity is normal. There is no hydronephrosis. Left interpolar nephrolith measures 0.5 cm. The pancreas is normal in appearance. The spleen measures 8.9 cm. IMPRESSION: 1. Gallbladder sludge. 2. Left nephrolithiasis. 3. Right renal atrophy.
[2025-04-24] MEDS: PANTOPRAZOLE 40 MG TAB PO SCH (05:39)
--- NOTE | 2025-04-24 06:40 | ECG ---
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
[2025-04-24 07:00] LABS: Basophils # (auto) 0 10 ^3/uL (0-0.2); Basophils % (auto) 0.2 % (0.0-2.0); Eosinophils # (auto) 0 10 ^3/uL (0-0.8); Eosinophils % (auto) 0.4 % (0.0-7.0); Hemoglobin 12.9 g/dL (12.2-16.2); Lymphocytes # (auto) 0.5 10 ^3/uL (0.4-5.4); Lymphocytes % (auto) 5.9 % (10.0-50.0); Mean Corpuscular Hemoglobin 30.8 pg (28.0-32.0); Mean Corpuscular Hgb Conc. 34.1 g/dL (32.0-36.0); Mean Corpuscular Volume 90.4 fL (80.0-100.0); Monocytes # (auto) 0.6 10 ^3/uL (0-1.3); Monocytes % (auto) 7.1 % (0.0-12.0); Neutrophils # (auto) 7.8 10 ^3/uL (1.6-8.6); Neutrophils % (auto) 86.4 % (37.0-80.0); Platelet Count (auto) 163 10^3/uL (140-450); Red Cell Distribution Width 14.1 % (11.8-14.3)
[2025-04-24 07:05] LABS: Anion Gap 6 (5-15); Carbon Dioxide 31 mmol/L (20-31); Chloride 106 mmol/L (98-107); Sodium 143 mmol/L (136-145)
[2025-04-24 07:06] LABS: Calcium 9.3 mg/dL (8.7-10.4)
[2025-04-24 07:11] LABS: BUN/Creatinine Ratio 11.1 (10.0-20.0); Blood Urea Nitrogen 10 mg/dL (9-23); Glucose 86 mg/dL (74-106); Magnesium 2.1 mg/dL (1.6-2.6)
--- NOTE | 2025-04-24 08:50 | DVH ---
CHEST RADIOGRAPH Indication: SOB Technique: Single frontal view of the chest was obtained Comparison: CHEST XRAY 1 VIEW on DOS: 02/07/22, CXR1 on DOS: 02/07/22 FINDINGS: Lines and Tubes: None Lungs: No focal consolidation. Pleura: No effusion. No pneumothorax. Cardiomediastinal contours: Unremarkable Bones: No acute osseous abnormality. IMPRESSION: No acute cardiopulmonary disease.
[2025-04-24] MEDS: MEMANTINE HCL 5 MG TAB PO SCH (09:16)
[2025-04-24] MEDS: ENOXAPARIN SOD 40 MG/0.4 ML SYRINGE SC SCH (09:21)
[2025-04-24 11:20] LABS: Folate (Folic Acid) 35.09 ng/mL (>5.38)
--- NOTE | 2025-04-24 16:43 | DVHPNRES ---
Progress Note Date Seen: Apr 24, 2025 Resident Creating Document: SHUKRI STOCK EVAN Has the PT tested + for MRSA If YES, has PT been informed?: No Medical Necessity Reason Pt with a Central, PICC or Fol: No Subjective Review of Systems Patient is a 89 year old female with a past medical history of dementia, dyslipidemia, insomnia was brought to the ED via EMS for chief complaint of nausea and abdominal discomfort s/p what her facility staff stated was a tonic clonic seizure. Patient lives at [facility] and apparently stopped witnessed about 20 seconds of seizure-like activity while she was eating and she started to have tremors. Patient is a poor historian due to medical history and limited history provided by facility. At this time no family present. Patient has no history of seizures. Past medical history: dementia, dyslipidemia, insomnia Past surgical history: Tonsillectomy, hysterectomy Social history: Patient reports more than 40 pack year smoking history but currently denies any smoking, alcohol, drug use Home medications: Atorvastatin 20 mg, pramipexole 0.125 mg, memantine 10 mg b.i.d., trazodone 50 mg HS Patient seen and examined at the bedside. Patient is altered and has dementia at baseline and can not provide proper history. History was taken from patient's daughter happened phone. Per patient's daughter, the patient had an episode of witnessed uncontrolled movement and subsequently the patient became altered. She has history of same episode 1 year back while she was taking bath. Currently, the patient does not have any symptoms but due to cognition disorder can not provide proper history. Objective vital signs Vital Sign Date Time Temp Pulse Resp B/P (MAP) Pulse Ox O2 Delivery O2 Flow Rate FiO2 04/24/25 13:00 98.4 61 18 109/61 (77) 98 98.4 04/24/25 08:05 Nasal Cannula* 2 28 Total Intake and Output 04/23/25 04/23/25 04/24/25 15:00 23:00 07:00 Intake Total 175 ml Balance 175 ml medications Current Medications Medications Dose Ordered Sig/Laverne Route Start Time Stop Time Status Last Admin Dose Admin Atorvastatin Calcium 20 mg HS PO 04/24/25 22:00 Memantine 10 mg Q12HR PO 04/24/25 10:00 04/24/25 09:16 10 MG Pramipexole Dihydrochloride 0.125 mg HS PO 04/24/25 22:00 Trazodone HCl 50 mg HS PO 04/24/25 22:00 Pantoprazole Sodium 40 mg DAILY@0600 PO 04/24/25 06:00 04/24/25 05:39 40 MG Ondansetron HCl 4 mg Q8HPRN PRN IV 04/24/25 00:45 Enoxaparin Sodium 40 mg DAILY SC 04/24/25 10:00 04/24/25 09:21 40 MG Examination General Appearance: Alert, Oriented X3, Cooperative, No acute distress HEENT: Atraumatic, PERRLA, EOMI, Mucous membrane moist/pink Respiratory: Clear to auscultation, Normal air movement Cardiovascular: Regular rate, Normal S1, Normal S2, No murmurs, no chest wall tenderness Abdominal: Normal bowel sounds, Soft, No tenderness, No hepatospenomegaly, No masses Extremities: No clubbing, No cyanosis, No edema, Normal pulses, No tenderness/swelling Skin: No rashes, No breakdown, No significant lesion Neuro: Normal gait, Normal speech, Strength at 5/5 X4 ext, Normal tone, Sensation intact, Cranial nerves 3-12 NL, Reflexes 2+ Psych/Mental Status: Mental status NL, Mood NL laboratory and microbiology Laboratory Tests 04/24/25 05:54 Test 04/24/25 05:54 Range/Units Serum Glucose 86 74-106 mg/dL Microbiology Date/Time Source Procedure Growth Status 04/24/25 06:00 Nose MRSA Screen - Final Complete Labs and/or images reviewed: Labs reviewed by me, Image(s) reviewed by me Problem List/Assessment/Plan Problem List/Assessment/Plan Acute on chronic metabolic encephalopathy, likely due to dehydration ? Convulsive syncope History of dementia History of insomnia ? 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 Ureter colic * Head CT scan shows no acute intracranial abnormalities, moderate to severe chronic small vessel ischemic changes, age-related atrophic * Abdominal ultrasound shows gallbladder sludge, left nephrolithiasis with right renal atrophy * Chest x-ray shows intrathoracic abnormalities Plan/recommendation * One dose of levetiracetam was given * Check echocardiogram * Check orthostatic vitals * IV fluid * Continue home meds, memantine and trazodone DIET: Regular diet DVT PROPHYLAXIS: Lovenox CODE STATUS: Goal of care discussed for more than 18 minutes, full code DISPOSITION: Med/surge Patient's status and plan discussed with the patient. Case discussed with Dr. Pfeiffer. Plan discussed with: Patient, Other (RN) My Orders My Orders Orders - SHUKRI STOCK Procedure Category Date Status Time Orthostatic Vital ORDERS 04/24/25 Transmitted Signs 11:15 Date of Service: Apr 24, 2025 Billing Provider: ANTONIETTA PFEIFFER MD Common Visit Codes: [id number] INP/OBS CARE(HIGH) SHUKRI STOCK Apr 24, 2025 16:43 ANTONIETTA PFEIFFER MD Apr 25, 2025 15:37
[2025-04-24] MEDS: traZODone HCL 50 MG TAB PO SCH (22:06)
[2025-04-24] MEDS: ATORVASTATIN 20 MG TAB PO SCH (22:06)
[2025-04-24] MEDS: PRAMIPEXOLE DIHYDROCHLORIDE MO 0.25 MG TAB PO SCH (22:08)
[2025-04-25] VITALS (14 sets, daily range): BP systolic 98–126; BP diastolic 48–66; PULSE 58–85; RESP 15–18; TEMP 97.8–99.1; O2SAT 90–98
[2025-04-25] MEDS: ACETAMINOPHEN 325 MG TAB PO PRN (02:21)
[2025-04-25 05:37] LABS: Basophils # (auto) 0 10 ^3/uL (0-0.2); Basophils % (auto) 0.2 % (0.0-2.0); Eosinophils # (auto) 0 10 ^3/uL (0-0.8); Hematocrit 37.5 % (36.0-46.0); Hemoglobin 12.8 g/dL (12.2-16.2); Lymphocytes # (auto) 0.3 10 ^3/uL (0.4-5.4); Lymphocytes % (auto) 3.8 % (10.0-50.0); Mean Corpuscular Hemoglobin 30.4 pg (28.0-32.0); Mean Corpuscular Hgb Conc. 34.3 g/dL (32.0-36.0); Mean Corpuscular Volume 88.7 fL (80.0-100.0); Monocytes # (auto) 0.7 10 ^3/uL (0-1.3); Monocytes % (auto) 7.6 % (0.0-12.0); Neutrophils # (auto) 8.1 10 ^3/uL (1.6-8.6); Neutrophils % (auto) 88.4 % (37.0-80.0); Platelet Count (auto) 148 10^3/uL (140-450); Red Blood Cells 4.22 10^6/uL (4.0-5.20); Red Cell Distribution Width 13.9 % (11.8-14.3); White Blood Cell 9.1 10^3/uL (4.4-10.8)
[2025-04-25 05:52] LABS: Albumin 3.9 g/dL (3.2-4.8); Anion Gap 7 (5-15); BUN/Creatinine Ratio 13.2 (10.0-20.0); Blood Urea Nitrogen 12 mg/dL (9-23); Carbon Dioxide 27 mmol/L (20-31); Chloride 102 mmol/L (98-107); Total Protein 6.1 g/dL (5.7-8.2)
[2025-04-25 06:07] LABS: Alanine Aminotransferase 541 U/L (7-40); Alkaline Phosphatase 214 U/L (46-116); Bilirubin, Total 2.6 mg/dL (0.2-1.0); Calcium 8.6 mg/dL (8.7-10.4); Glucose 135 mg/dL (74-106); Sodium 136 mmol/L (136-145)
[2025-04-25 06:35] LABS: Aspartate Aminotransferase 788 U/L (13-40)
[2025-04-25] MEDS: SODIUM CHLORIDE 0.9% 250 ML IV ONE (07:57)
[2025-04-25] MEDS: SODIUM CHLORIDE 0.9% 1,000 ML IV ONE (07:57)
[2025-04-25 08:40] LABS: Cholesterol 147 mg/dL (< 200); Triglycerides 51 mg/dL (< 150)
[2025-04-25 08:41] LABS: LDL Cholesterol 63 mg/dL (< 100)
[2025-04-25 08:46] LABS: HDL Cholesterol 70 mg/dL (40-59)
[2025-04-25 09:16] LABS: Opiate Scree,Urine Neg (NEGATIVE)
[2025-04-25 09:17] LABS: Amphetamine Screen, Urine Neg (NEGATIVE); Barbiturate Scree,Urine Neg (NEGATIVE); Benzodiazephine Screen, Urine Neg (NEGATIVE); Cannabinoid Screen, Urine Neg (NEGATIVE); Cocaine Screen, Urine Neg (NEGATIVE); Phencyclidine Screen, Urine Neg (NEGATIVE)
--- NOTE | 2025-04-25 12:53 | DVH ---
Indication: panscreatitis Technique: CT axial images of the abdomen and pelvis are obtained without contrast. Coronal and sagit alicia reformats were obtained. Radiation Dose Information: CTDI volume is 8.87 mGy. Dose-length product is 390.98 mGy*cm Comparison: CT CT AB PEL WO CON-NO ORAL OR IV on DOS: 06/16/24, [facility] on DOS: 02/10/22, [facility] on DOS: 01/15 05/07 FINDINGS: There is limited interpretation of the abdomen and pelvis without administration of intravenous contr ast. Lung bases demonstrate atelectasis. Adrenal glands, spleen, pancreas and liver unremarkable in shape. Distended gallbladder. Cholelithia sis. Nonobstructing left renal calculus measuring 2 mm. Stomach is partially distended. Small bowel loops are normal in caliber. Large volume stool in the colon. Colonic diverticular disease. No secondary signs for appendicitis. Abdominal aortic atherosclerotic disease and tortuosity. Bladder decompressed by Barakat catheter. No f ree pelvic fluid. No inguinal lymphadenopathy. Posterior intrapedicular fixation of the L3 through L5 vertebral bodies. 5 mm anterolisthesis of L4 o n L5. Vertebral plasty changes at T12, L1. T12 compression deformity with 50% loss height. L1, L2 c ompression deformities with 20% loss height. IMPRESSION: Examination degraded by motion. 1. No CT imaging findings for pancreatitis. 2. Hydropic gallbladder and cholelithiasis. 3. Colonic diverticular disease. Large volume stool within the colon. 4. Atherosclerotic disease. 5. Nonobstructing left renal calculus. 6. Other findings as described.
--- NOTE | 2025-04-25 15:47 | DVHPNRES ---
Progress Note Date Seen: Apr 25, 2025 Resident Creating Document: SHUKRI STOCK EVAN Has the PT tested + for MRSA If YES, has PT been informed?: No Medical Necessity Reason Pt with a Central, PICC or Fol: No Subjective Review of Systems Patient seen and examined at the bedside. Patient is complaining of mild abdominal pain Patient reports: Feels worse Changes from previous H/P or p: Changes Objective vital signs Vital Sign Date Time Temp Pulse Resp B/P (MAP) Pulse Ox O2 Delivery O2 Flow Rate FiO2 04/25/25 12:38 68 17 120/66 (84) 95 04/25/25 12:37 97.8 97.8 04/25/25 08:10 Room Air* 0 21 Total Intake and Output 04/24/25 04/24/25 04/25/25 15:00 23:00 07:00 Intake Total 300 ml 400 ml Output Total 600 ml 1000 ml Balance -300 ml -600 ml medications Current Medications Medications Dose Ordered Sig/Laverne Route Start Time Stop Time Status Last Admin Dose Admin Atorvastatin Calcium 20 mg HS PO 04/24/25 22:00 04/24/25 22:06 20 MG Memantine 10 mg Q12HR PO 04/24/25 10:00 04/25/25 09:35 10 MG Pramipexole Dihydrochloride 0.125 mg HS PO 04/24/25 22:00 04/24/25 22:08 0.125 MG Trazodone HCl 50 mg HS PO 04/24/25 22:00 04/24/25 22:06 50 MG Pantoprazole Sodium 40 mg DAILY@0600 PO 04/24/25 06:00 04/25/25 06:46 40 MG Ondansetron HCl 4 mg Q8HPRN PRN IV 04/24/25 00:45 Enoxaparin Sodium 40 mg DAILY SC 04/24/25 10:00 04/25/25 09:35 40 MG Acetaminophen 650 mg Q6HP PRN PO 04/25/25 02:00 04/25/25 02:21 650 MG Examination General Appearance: Alert, Oriented X3, Cooperative, No acute distress HEENT: Atraumatic, PERRLA, EOMI, Mucous membrane moist/pink Respiratory: Clear to auscultation, Normal air movement Cardiovascular: Regular rate, Normal S1, Normal S2, No murmurs, no chest wall tenderness Abdominal: Mild abdominal tenderness Extremities: No clubbing, No cyanosis, No edema, Normal pulses, No tenderness/swelling Skin: No rashes, No breakdown, No significant lesion Neuro: Normal gait, Normal speech, Strength at 5/5 X4 ext, Normal tone, Sensation intact, Cranial nerves 3-12 NL, Reflexes 2+ Psych/Mental Status: Mental status NL, Mood NL laboratory and microbiology Laboratory Tests 04/25/25 05:07 Test 04/25/25 05:07 Range/Units Serum Glucose 135 H 74-106 mg/dL Microbiology Date/Time Source Procedure Growth Status 04/24/25 06:00 Nose MRSA Screen - Final Complete Labs and/or images reviewed: Labs reviewed by me, Image(s) reviewed by me Problem List/Assessment/Plan Problem List/Assessment/Plan Acute on chronic metabolic encephalopathy, likely due to dehydration/pancreatitis Acute pancreatitis, possibly due to gallstone ? Convulsive syncope History of dementia History of insomnia ? 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 Ureter colic * Head CT scan shows no acute intracranial abnormalities, moderate to severe chronic small vessel ischemic changes, age-related atrophic * Abdominal ultrasound shows gallbladder sludge, left nephrolithiasis with right renal atrophy * Chest x-ray shows intrathoracic abnormalities * LFTs deranged and AST/ALT are raised at 788/541, and lipase is raised at 1259 * CT scan shows hydropic gallbladder with cholelithiasis Plan/recommendation * One dose of levetiracetam was given * Check echocardiogram * Check orthostatic vitals * IV fluid * Continue home meds, memantine and trazodone * Consulted GI * MRCP DIET: NPO DVT PROPHYLAXIS: Lovenox CODE STATUS: Goal of care discussed for more than 18 minutes, full code DISPOSITION: Med/surge Patient's status and plan discussed with the patient. Case discussed with Dr. Pfeiffer. Plan discussed with: Patient, Other My Orders My Orders Orders - SHUKRI STOCK RESDIHERB Procedure Category Date Status Time Sodium Chloride 0.9% PHA 04/25/25 In Process 07:00 Ct Ab Pel Wo Con-No CT 04/25/25 Resulted Oral Or Iv 08:16 Npo (Nothing By DIET 04/25/25 Transmitted Mouth) Diet Breakfast Mrcp Mri MRI 04/25/25 Logged 14:48 * Gi Dvh [employer] CONS 04/25/25 Transmitted 14:48 Date of Service: Apr 25, 2025 Billing Provider: ANTONIETTA PFEIFFER MD Common Visit Codes: [id number] INP/OBS CARE(HIGH) SHUKRI STOCK Apr 25, 2025 15:47 ANTONIETTA PFEIFFER MD Apr 27, 2025 11:44
--- NOTE | 2025-04-25 17:50 | DVH ---
PROCEDURE: MRI MRCP MRI Indication: Pancretitis, bile duct stone COMPARISON: 03/25/2025 TECHNIQUE: Multiplanar multisequence images of the abdomen obtained per MRCP protocol. FINDINGS: Examination degraded by motion. Adrenal glands, spleen unremarkable. Hydropic/Distended gallbladder. There is a Gallstone near the junction of the cystic duct and common hepatic duct , just near the proximal common bile duct measuring 6 mm and is obstructing. There is di latation of intrahepatic ducts up to 6 mm. The mid to distal CBD measures 6 mm in diameter Pancreaticm duct measures 3.7 mm. 8 mm T2 bright lesion in the pancreatic head. The kidneys demonstrate no hydronephrosis. Right renal cyst measuring 1.6 cm. Colonic diverticular disease. Lumbar dextrocurvature. Tiny bilateral pleural effusions. IMPRESSION: 1. Obstructing calculus in the region of the proximal common bile duct just at the confluence of the common hepatic and cystic ducts measuring 6 mm resulting in obstruction of the gallbladder/ gallbladd er distention and intrahepatic duct dilatation up to 6 mm. Recommend surgical/ GI consultation for f urther management. 2. Mild dilatation of the pancreatic duct up to 3.7 mm. 3. Pancreatic head cystic lesion measuring 8 mm. Recommend MRI abdomen with and without contrast and surgical consultation for further management with differential considerations including pancreatic c yst, pseudocyst, IPMN, cystic neoplasm. 4. Other findings as described.
[2025-04-25 18:13] LABS: Total Protein 6.2 g/dL (5.7-8.2)
[2025-04-25 18:14] LABS: Bilirubin, Direct 1.6 mg/dL (<0.3); Bilirubin, Total 2.6 mg/dL (0.2-1.0)
[2025-04-26] VITALS (9 sets, daily range): BP systolic 104–150; BP diastolic 58–84; PULSE 59–91; RESP 17–20; TEMP 98.2–99.8; O2SAT 94–99
[2025-04-26 05:47] LABS: Basophils # (auto) 0 10 ^3/uL (0-0.2); Basophils % (auto) 0.2 % (0.0-2.0); Eosinophils # (auto) 0 10 ^3/uL (0-0.8); Eosinophils % (auto) 0.6 % (0.0-7.0); Hematocrit 41.6 % (36.0-46.0); Hemoglobin 13.7 g/dL (12.2-16.2); Lymphocytes # (auto) 0.6 10 ^3/uL (0.4-5.4); Lymphocytes % (auto) 7.7 % (10.0-50.0); Mean Corpuscular Hemoglobin 30.4 pg (28.0-32.0); Mean Corpuscular Volume 92.3 fL (80.0-100.0); Monocytes # (auto) 0.7 10 ^3/uL (0-1.3); Monocytes % (auto) 8.3 % (0.0-12.0); Neutrophils # (auto) 6.7 10 ^3/uL (1.6-8.6); Neutrophils % (auto) 83.2 % (37.0-80.0); Nucleated Red Blood Cells % 0.2 %; Platelet Count (auto) 134 10^3/uL (140-450); Red Blood Cells 4.51 10^6/uL (4.0-5.20); Red Cell Distribution Width 14.4 % (11.8-14.3); White Blood Cell 8.1 10^3/uL (4.4-10.8)
[2025-04-26 05:49] LABS: Chloride 107 mmol/L (98-107); Potassium 4.1 mmol/L (3.5-5.1); Sodium 139 mmol/L (136-145)
[2025-04-26 05:50] LABS: Anion Gap 10 (5-15); Carbon Dioxide 22 mmol/L (20-31)
[2025-04-26 05:52] LABS: Calcium 8.6 mg/dL (8.7-10.4)
[2025-04-26 05:55] LABS: BUN/Creatinine Ratio 11.6 (10.0-20.0); Blood Urea Nitrogen 10 mg/dL (9-23); Glucose 83 mg/dL (74-106)
[2025-04-26] MEDS ORDERED: SODIUM CHLORIDE 0.9% 1,000 ML IV SCH (11:15)
[2025-04-26] MEDS: SODIUM CHLORIDE 0.9% 1,000 ML IV ONE (13:13)
--- NOTE | 2025-04-26 13:47 | DVHINCON2 ---
GI Consult Consult Note GI consult note Date of Consultation: 04/26/2025 Chief Complaint: Pancreatitis, gallstone induced Referring Physician: Dr. Still H&P: 89-year-old female with past medical history of dementia, dyslipidemia, insomnia brought to the ER with nausea and abdominal discomfort and after witnessed tonic-clonic seizure from [place]. Patient is a poor historian. And states that her abdominal pain started about a day ago, mostly in in her upper abdomen. No nausea or vomiting. Denies hematemesis Past Medical History: Dementia, dyslipidemia, insomnia Past Surgical History: Tonsillectomy, hysterectomy Social History: NO smoking, drinking ETOH and use of illegal drugs. Family History: Noncontributory Review of Systems: Constitutional: no fever, chill, weight loss HEENT: no eye pain, no hearing loss, no oral lesion, no scleral icterus Heart: no chest pain, no chest pressure Lung: no cough, no dyspnea with exertion Abdomen: see HPI Physical exam: General: NAD, AAO Chest: lung chang clear to auscultation Heart: RRR, no murmur Abdomen: non-distended, no tenderness to palpation, +BS Labs: Test 04/25/25 05:07 Range/Units Serum Glucose 135 H 74-106 mg/dL Microbiology Date/Time Source Procedure Growth Status 04/24/25 06:00 Nose MRSA Screen - Final Complete Labs and/or images reviewed: Labs reviewed by me, Image(s) reviewed by me Imaging: Abdominal ultrasound IMPRESSION: 1. Gallbladder sludge. 2. Left nephrolithiasis. 3. Right renal atrophy. CT abdomen pelvis IMPRESSION: Examination degraded by motion. 1. No CT imaging findings for pancreatitis. 2. Hydropic gallbladder and cholelithiasis. 3. Colonic diverticular disease. Large volume stool within the colon. 4. Atherosclerotic disease. 5. Nonobstructing left renal calculus. 6. Other findings as described. Mrcp IMPRESSION: 1. Obstructing calculus in the region of the proximal common bile duct just at the confluence of the common hepatic and cystic ducts measuring 6 mm resulting in obstruction of the gallbladder/ gallbladder distention and intrahepatic duct dilatation up to 6 mm. Recommend surgical/ GI consultation for further management. 2. Mild dilatation of the pancreatic duct up to 3.7 mm. 3. Pancreatic head cystic lesion measuring 8 mm. Recommend MRI abdomen with and without contrast and surgical consultation for further management with differential considerations including pancreatic cyst, pseudocyst, IPMN, cystic neoplasm. 4. Other findings as described. Assessment: Abdominal pain Choledocholithiasis Pancreatitis Pancreatic head cystic lesion on MRCP History of dementia Plan: -discussed with Dr. Stearns Strict NPO IV fluids Monitor labs HLOC recommended for possible ERCP Thank you for this consult Date of Service: Apr 26, 2025 Billing Provider: ANATOLY ALEXANDER Common Visit Codes: CONSULT ONLY Consultation Codes: [id number] CONSULT <60MIN ANATOLY ALEXANDER Apr 26, 2025 13:47
[2025-04-26] MEDS ORDERED: cefTRIAXone 1GM/50ML D5W 50 ML IV ONE (17:45)
[2025-04-26] MEDS: metroNIDAZOLE 500MG/100ML 100 ML IV ONE (18:09)
--- NOTE | 2025-04-26 18:49 | DVHDSRES ---
Discharge Summary Date of Admission Resident Creating Document: SHUKRI STOCK RESDIENT Apr 24, 2025 at 00:07 Labs/Diagnostic Data: Laboratory Results Test 04/26/25 15:42 04/26/25 05:09 04/25/25 08:40 04/25/25 05:07 White Blood Count 8.1 10^3/uL (4.4-10.8) Red Blood Count 4.51 10^6/uL (4.0-5.20) Hemoglobin 13.7 g/dL (12.2-16.2) Hematocrit 41.6 % (36.0-46.0) Mean Corpuscular Volume 92.3 fL (80.0-100.0) Mean Corpuscular Hemoglobin 30.4 pg (28.0-32.0) Mean Corpuscular Hemoglobin Concent 33.0 g/dL (32.0-36.0) Red Cell Distribution Width 14.4 % (11.8-14.3) Platelet Count 134 10^3/uL (140-450) Mean Platelet Volume 8.5 fL (6.9-10.8) Neutrophils (%) (Auto) 83.2 % (37.0-80.0) Lymphocytes (%) (Auto) 7.7 % (10.0-50.0) Monocytes (%) (Auto) 8.3 % (0.0-12.0) Eosinophils (%) (Auto) 0.6 % (0.0-7.0) Basophils (%) (Auto) 0.2 % (0.0-2.0) Neutrophils # (Auto) 6.7 10 ^3/uL (1.6-8.6) Lymphocytes # (Auto) 0.6 10 ^3/uL (0.4-5.4) Monocytes # (Auto) 0.7 10 ^3/uL (0-1.3) Eosinophils # (Auto) 0 10 ^3/uL (0-0.8) Basophils # (Auto) 0 10 ^3/uL (0-0.2) Nucleated Red Blood Cells 0.2 % Sodium Level 139 mmol/L (136-145) Potassium Level 4.1 mmol/L (3.5-5.1) Chloride Level 107 mmol/L (98-107) Carbon Dioxide Level 22 mmol/L (20-31) Anion Gap 10 (5-15) Blood Urea Nitrogen 10 mg/dL (9-23) Creatinine 0.86 mg/dL (0.550-1.02) Glomerular Filtration Rate Calc 65 mL/min (>90) BUN/Creatinine Ratio 11.6 (10.0-20.0) Serum Glucose 83 mg/dL (74-106) Calcium Level 8.6 mg/dL (8.7-10.4) Lipase 53 U/L (12-53) Urine Opiates Screen Neg (NEGATIVE) Urine Fentanyl Screen Neg (NEGATIVE) Urine Barbiturates Screen Neg (NEGATIVE) Urine Phencyclidine Screen Neg (NEGATIVE) Urine Amphetamines Screen Neg (NEGATIVE) Urine Benzodiazepines Screen Neg (NEGATIVE) Urine Cocaine Screen Neg (NEGATIVE) Urine Cannabinoids Screen Neg (NEGATIVE) Total Bilirubin 2.6 mg/dL (0.2-1.0) Direct Bilirubin 1.6 mg/dL (<0.3) Aspartate Amino Transferase (AST) 813 U/L (13-40) Alanine Aminotransferase (ALT) 548 U/L (7-40) Alkaline Phosphatase 224 U/L (46-116) Total Protein 6.2 g/dL (5.7-8.2) Albumin 4.0 g/dL (3.2-4.8) Triglycerides Level 51 mg/dL (< 150) Cholesterol Level 147 mg/dL (< 200) LDL Cholesterol 63 mg/dL (< 100) HDL Cholesterol 70 mg/dL (40-59) Test 04/24/25 05:54 04/23/25 21:20 04/23/25 19:05 04/23/25 18:00 Magnesium Level 2.1 mg/dL (1.6-2.6) B-Type Natriuretic Peptide 96.65 pg/mL (0-100) Vitamin B12 Level 439 pg/mL (211-911) Folic Acid 35.09 ng/mL (>5.38) Urine Color Yellow (Yellow) Urine Clarity Clear (Clear) Urine pH 5.5 (5.0-9.0) Urine Specific [place] 1.018 (1.001-1.035) Urine Protein Negative (Negative) Urine Ketones Negative (Negative) Urine Blood Negative /uL (Negative) Urine Nitrite Negative (Negative) Urine Bilirubin Negative (Negative) Urine Urobilinogen Normal mg/dL (Negative) Urine Leukocyte Esterase Negative /uL (Negative) Urine RBC 2 /hpf (0 - 4) Urine Microscopic WBC 1 /HPF (0-5) Urine Squamous Epithelial Cells Few /hpf (<5) Urine Bacteria None seen /hpf (None Seen) Urine Mucus Few (None Seen) Urine Glucose Normal mg/dL (Normal) Troponin I High Sensitivity 3 ng/L (</=34) Influenza Type A Antigen Negative (Negative) Influenza Type B Antigen Negative (Negative) SARS-CoV-2 Antigen (Rapid) Negative (NEGATIVE) Other Laboratory Tests 04/26/25 05:09 Discharge Statement: "Patient was advised to return to the ER or call 911 if any headaches, dizziness, shortness of breath, chest pain, abdominal pain, bleeding, fevers, or worsening of medical condition. Patient was counseled about treatment plan, medications, possible side effects, patientverbalized understanding. All questions were answered to the best of my ability. This discharge took greater then 30 minutes in planning, reviewing documentation, counseling the patient, and discussing with other team members." ASSESSMENT ASSESSMENT Assessment SHUKRI STOCK [facility] Apr 26, 2025 18:49
[2025-04-26] MEDS: cefTRIAXone 1GM/50ML D5W 50 ML IV ONE (20:25)
[2025-04-26] MEDS: metroNIDAZOLE 500MG/100ML 100 ML IV SCH (22:04)
[2025-04-27 05:00] VITALS: BP 114/56; PULSE 63; RESP 18; TEMP 97.8; O2SAT 96
[2025-04-27 05:47] LABS: Basophils # (auto) 0 10 ^3/uL (0-0.2); Basophils % (auto) 0.2 % (0.0-2.0); Eosinophils # (auto) 0.1 10 ^3/uL (0-0.8); Eosinophils % (auto) 1.1 % (0.0-7.0); Hematocrit 35.1 % (36.0-46.0); Hemoglobin 11.8 g/dL (12.2-16.2); Lymphocytes # (auto) 0.5 10 ^3/uL (0.4-5.4); Lymphocytes % (auto) 8.7 % (10.0-50.0); Mean Corpuscular Hgb Conc. 33.7 g/dL (32.0-36.0); Mean Corpuscular Volume 88.9 fL (80.0-100.0); Monocytes # (auto) 0.7 10 ^3/uL (0-1.3); Monocytes % (auto) 12.2 % (0.0-12.0); Neutrophils # (auto) 4.4 10 ^3/uL (1.6-8.6); Neutrophils % (auto) 77.8 % (37.0-80.0); Nucleated Red Blood Cells % 0.2 %; Platelet Count (auto) 141 10^3/uL (140-450); Red Blood Cells 3.95 10^6/uL (4.0-5.20); White Blood Cell 5.6 10^3/uL (4.4-10.8)
[2025-04-27 05:56] LABS: Albumin 3.5 g/dL (3.2-4.8); Anion Gap 9 (5-15); BUN/Creatinine Ratio 19.2 (10.0-20.0); Blood Urea Nitrogen 14 mg/dL (9-23); Carbon Dioxide 26 mmol/L (20-31); Chloride 107 mmol/L (98-107); Glucose 93 mg/dL (74-106); Potassium 3.8 mmol/L (3.5-5.1); Sodium 142 mmol/L (136-145)
[2025-04-27 06:10] LABS: Alanine Aminotransferase 233 U/L (7-40); Alkaline Phosphatase 219 U/L (46-116); Aspartate Aminotransferase 140 U/L (13-40); Bilirubin, Total 1.6 mg/dL (0.2-1.0); Calcium 8.1 mg/dL (8.7-10.4); Total Protein 5.4 g/dL (5.7-8.2)
[2025-04-27 07:52] VITALS: BP 124/57; PULSE 63; RESP 18; TEMP 97.8; O2SAT 97
[2025-04-27 08:00] VITALS: PULSE 65; RESP 16
[2025-04-27] MEDS: cefTRIAXone 1GM/50ML D5W 50 ML IV SCH (09:18)
[2025-04-27 12:19] VITALS: BP 126/56; PULSE 58; RESP 18; TEMP 98.2; O2SAT 97
[2025-04-27] MEDS: FLEET ENEMA(ADULT) 135 ML PR ONE (12:53)
--- NOTE | 2025-04-27 21:43 | DVHPNRES ---
Progress Note Has the PT tested + for MRSA If YES, has PT been informed?: No Medical Necessity Reason Pt with a Central, PICC or Fol: No Objective vital signs Vital Sign Date Time Temp Pulse Resp B/P (MAP) Pulse Ox O2 Delivery O2 Flow Rate FiO2 04/27/25 12:19 98.2 58 18 126/56 (79) 97 98.2 04/27/25 08:00 Nasal Cannula* 2 28 Total Intake and Output 04/26/25 04/26/25 04/27/25 15:00 23:00 07:00 Intake Total 1050 ml 200 ml Output Total 400 ml 300 ml Balance 650 ml -100 ml laboratory and microbiology Laboratory Tests 04/27/25 05:24 Test 04/27/25 05:24 Range/Units Serum Glucose 93 74-106 mg/dL Microbiology Date/Time Source Procedure Growth Status 04/24/25 06:00 Nose MRSA Screen - Final Complete Problem List/Assessment/Plan Problem List/Assessment/Plan Acute on chronic metabolic encephalopathy, likely due to dehydration/pancreatitis Acute pancreatitis, possibly due to gallstone ? Convulsive syncope History of dementia History of insomnia ? 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 Ureter colic * Head CT scan shows no acute intracranial abnormalities, moderate to severe chronic small vessel ischemic changes, age-related atrophic * Abdominal ultrasound shows gallbladder sludge, left nephrolithiasis with right renal atrophy * Chest x-ray shows intrathoracic abnormalities * LFTs deranged and AST/ALT are raised at 788/541, and lipase is raised at 1259 * CT scan shows hydropic gallbladder with cholelithiasis Plan/recommendation * One dose of levetiracetam was given * Check echocardiogram * Check orthostatic vitals * IV fluid * Continue home meds, memantine and trazodone * Consulted GI * MRCP DIET: NPO DVT PROPHYLAXIS: Lovenox CODE STATUS: Goal of care discussed for more than 18 minutes, full code DISPOSITION: Med/surge Patient's status and plan discussed with the patient. Case discussed with Dr. Johnson. My Orders My Orders Orders - SHUKRI STOCK Procedure Category Date Status Time Imaging Transfer ORDERS 04/27/25 Transmitted Request 11:50 SHUKRI STOCK RESDIENT Apr 27, 2025 21:43
--- NOTE | 2025-04-27 22:08 | DVHPN2 ---
Progress Note - Dictate Date Seen: Apr 27, 2025 (Late entryTime of visit 2:00 p.m.) Has the PT tested + for MRSA If YES, has PT been informed?: No Medical Necessity Reason Pt with a Central, PICC or Fol: No Subjective No new complaints Patient is awake alert resting comfortably Liver enzymes are trending down CA 19-9 elevated to 51 vital signs Vital Sign Date Time Temp Pulse Resp B/P (MAP) Pulse Ox O2 Delivery O2 Flow Rate FiO2 04/27/25 12:19 98.2 58 18 126/56 (79) 97 98.2 04/27/25 08:00 Nasal Cannula* 2 28 Total Intake and Output 04/26/25 04/26/25 04/27/25 15:00 23:00 07:00 Intake Total 1050 ml 200 ml Output Total 400 ml 300 ml Balance 650 ml -100 ml objective General: NAD, AAO Chest: lung chang clear to auscultation Heart: RRR, no murmur Abdomen: non-distended, no tenderness to palpation, +BS laboratory and microbiology Laboratory Tests 04/27/25 05:24 Test 04/27/25 05:24 Range/Units Serum Glucose 93 74-106 mg/dL Problems(with codes): (1) Pancreatic cyst (2) Choledocholithiasis (3) Gallstone pancreatitis (4) Dementia (5) Metabolic encephalopathy (6) Acute abdominal pain Prognosis Plan Patient is being referred to [facility] for possible ERCP She also may need EUS and further evaluation for suspected pancreatic cancer or IPMN Continue to monitor labs Supportive care Plan discussed with: Other (Dr Johnson and Margy Mendez) DAYANNA PAZ MD Apr 27, 2025 22:08
[2025-04-28 11:06] LABS: Hepatitis B Core Total AB Negative (Negative)
[2025-04-28 11:42] LABS: Hepatitis A Total Antibody Negative (Negative); Hepatitis B Surface Antibody Negative (Negative); Hepatitis B Surface Antigen Negative (Negative); Hepatitis C Antibody Negative (Negative)
== END 2025-04-27 15:15 | disposition short-term general hospital (02) | DRG 438 ==
LOC: EDBD 17:42 → ER 17:45 → OVERFLOW 04-24 00:07 → TELE-WESTW 04-24 05:09 → TELE-EAST 04-24 17:40
PROVIDERS: ADMIT Student in an Organized Health Care Education/Training Program; ATTEND Emergency Medicine
DX: K85.10 Biliary acute pancreatitis without necrosis or infection (principal); G93.41 Metabolic encephalopathy; N17.0 Acute kidney failure with tubular necrosis; K82.1 Hydrops of gallbladder; E86.0 Dehydration; K80.50 Calculus of bile duct without cholangitis or cholecystitis without obstruction; G20.C Parkinsonism, unspecified; Z20.822 Contact with and (suspected) exposure to COVID-19; F02.80 Dementia in other diseases classified elsewhere, unspecified severity, without behavioral disturbance, psychotic disturbance, mood disturbance, and anxiety; G47.00 Insomnia, unspecified; N20.0 Calculus of kidney; E78.5 Hyperlipidemia, unspecified; Z90.49 Acquired absence of other specified parts of digestive tract; Z79.899 Other long term (current) drug therapy; Z88.0 Allergy status to penicillin; Z91.013 Allergy to seafood; Z91.041 Radiographic dye allergy status
CPT/HCPCS: 36415; 70450; 71045; 74176; 74181; 76700; 80048; 80053; 80061; 80076; 80307; 81001; 82607; 82746; 83690; 83735; 83880; 84484; 85025; 86301; 86704; 86706; 86708; 86803; 87081; 87340; 87426; 87804; 93005; 93306; 96365; G0378; J3490